=== PATIENT | male | born 1985 | race Caucasian/White ===

== ENCOUNTER 2020-02-29 12:59 | Emergency (ER) | payer OTHER | END 2020-02-29 20:50 | disposition home or self-care (01) | LOC: FER 12:59 | DX: S01.81XA Laceration without foreign body of other part of head, initial encounter (principal); Z23 Encounter for immunization; W01.0XXA Fall on same level from slipping, tripping and stumbling without subsequent striking against object, initial encounter; Y92.009 Unspecified place in unspecified non-institutional (private) residence as the place of occurrence of the external cause | CPT/HCPCS: 90471; 90715; 99152 ==

== ENCOUNTER 2021-02-27 09:38 | Emergency (ER) | payer OTHER | END 2021-02-27 14:06 | disposition home or self-care (01) | LOC: FER 09:38 | DX: S01.01XA Laceration without foreign body of scalp, initial encounter (principal); Z88.1 Allergy status to other antibiotic agents; W19.XXXA Unspecified fall, initial encounter; Y92.129 Unspecified place in nursing home as the place of occurrence of the external cause | CPT/HCPCS: 99283 ==

== ENCOUNTER 2021-07-09 09:33 | Emergency (ER) | payer OTHER ==
[2021-07-09 11:48] LABS: BASOPHIL 0.7 % (0-2); EOSINOPHIL 3.5 % (0-5); HCT 41.2 % (42.0-52.0); HGB 13.1 g/dl (13.2-18.0); LYMPHOCYTE 18.8 % (15-48); MCH 30.5 pg (25.0-31.0); MCHC 31.8 g/dL (32.0-36.0); MCV 95.8 fL (78.0-100.0); MPV 10.8 fL (6.0-9.5); NEUTROPHIL 53.8 % (41-80); NRBC 0; PLT 173 K/uL (150-400); RDW 13.2 % (11.5-14.0)
[2021-07-09 11:50] LABS: MONOCYTE 22.9 % (0-12)
[2021-07-09 11:53] LABS: BUN/CREAT RATIO (CALC) 27.9 RATIO; CREATININE 0.86 mg/dL (0.67-1.17); POTASSIUM 4.6 mmol/L (3.5-5.1)
[2021-07-09 12:04] LABS: LACTIC ACID 0.8 mmol/L (0.4-1.9)
[2021-07-09 13:38] LABS: BILIRUBIN NEGATIVE (NEGATIVE); BLOOD NEGATIVE Ery/uL (NEGATIVE); COLOR YELLOW (YELLOW); GLUCOSE (U) NORMAL (NORMAL); LEUKOCYTES 1+ Leu/uL (NEGATIVE); NITRITE POSITIVE (NEGATIVE); PROTEIN NEGATIVE (NEGATIVE); SPECIFIC GRAVITY 1.025 (1.001-1.030); UROBILINOGEN 0.2 mg/dL (0.2-1.0)
[2021-07-09 13:44] LABS: CLARITY HAZY (CLEAR)
[2021-07-09 13:55] LABS: BACTERIA 4+
[2021-07-09] MEDS ORDERED: DULCOLAX5 MG PO (15:03)
[2021-07-09] MEDS ORDERED: BACTRIM DS TAB1 EACH PO (15:03)
== END 2021-07-09 15:12 | disposition home or self-care (01) ==
LOC: FER 09:33
PROVIDERS: Emergency Medicine
DX: K59.00 Constipation, unspecified (principal); N39.0 Urinary tract infection, site not specified; Z88.1 Allergy status to other antibiotic agents
CPT/HCPCS: 36415; 74022; 80048; 81001; 83605; 85025; 87076; 87088; 87186

== ENCOUNTER 2021-07-09 18:09 | Emergency (ER) | payer OTHER ==
[~2021-07-09 18:09] MED LIST: BACTRIM DS TAB1 EACH PO; DULCOLAX5 MG PO
[2021-07-09 18:57] LABS: BASOPHIL 0.6 % (0-2); EOSINOPHIL 4.3 % (0-5); HCT 42.2 % (42.0-52.0); HGB 13.7 g/dl (13.2-18.0); LYMPHOCYTE 18.4 % (15-48); MCHC 32.5 g/dL (32.0-36.0); MCV 95.5 fL (78.0-100.0); MONOCYTE 18.5 % (0-12); NEUTROPHIL 57.9 % (41-80); NRBC 0; PLT 189 K/uL (150-400); RBC 4.42 M/uL (4.70-6.00); RDW 13.1 % (11.5-14.0); WBC 6.3 K/uL (4.0-10.5)
[2021-07-09 19:09] LABS: INR 1.15 (0.9-1.2); PROTHROMBIN TIME 14.1 SECONDS (11.8-13.4); PTT 35.3 SECONDS (24.4-34.7)
[2021-07-09 19:16] LABS: ALBUMIN 3.6 g/dL (3.4-5.0); BILIRUBIN - TOTAL 0.4 mg/dL (0.2-1.0); BUN/CREAT RATIO (CALC) 31.2 RATIO; CREATININE 0.77 mg/dL (0.67-1.17); GLOBULIN (CALCULATION) 4.3 g/dL; POTASSIUM 4.6 mmol/L (3.5-5.1); TOTAL PROTEIN 7.9 g/dL (6.4-8.2)
== END 2021-07-10 08:41 | disposition home or self-care (01) ==
LOC: FER 18:09
PROVIDERS: Emergency Medicine
DX: R77.8 Other specified abnormalities of plasma proteins (principal); K59.00 Constipation, unspecified; Z88.1 Allergy status to other antibiotic agents
CPT/HCPCS: 36415; 80053; 84484; 85025; 85610; 85730; 93005; J3486

== ENCOUNTER 2021-09-11 10:03 | Emergency (ER) | payer OTHER ==
[2021-09-11 11:11] LABS: BILIRUBIN NEGATIVE (NEGATIVE); BLOOD 3+ Ery/uL (NEGATIVE); COLOR YELLOW (YELLOW); GLUCOSE (U) NORMAL (NORMAL); LEUKOCYTES 1+ Leu/uL (NEGATIVE); NITRITE NEGATIVE (NEGATIVE); PROTEIN NEGATIVE (NEGATIVE); UROBILINOGEN 0.2 mg/dL (0.2-1.0)
[2021-09-11 11:24] LABS: CLARITY HAZY (CLEAR)
[2021-09-11 11:31] LABS: URINARY RBC 20-50
[2021-09-11 11:32] LABS: AMORPHOUS PHOSPHATE CRYSTALS MODERATE; BACTERIA TRACE
[2021-09-11] MEDS ORDERED: CEFDINIR300 MG PO (11:39)
== END 2021-09-11 12:10 | disposition home or self-care (01) ==
LOC: FER 10:03
PROVIDERS: Emergency Medicine
DX: N39.0 Urinary tract infection, site not specified (principal); G40.909 Epilepsy, unspecified, not intractable, without status epilepticus; Z88.1 Allergy status to other antibiotic agents; Z79.899 Other long term (current) drug therapy
CPT/HCPCS: 81001; 87076; 87088; 87186; J0696